=== PATIENT | male | born 1990 | race American Indian/Alaskan Native ===

== ENCOUNTER 2017-12-16 22:07 | Emergency (ER) | payer SELFPAY | END 2017-12-16 22:10 | disposition left against medical advice (07) | LOC: ED 22:07 | DX: K13.79 Other lesions of oral mucosa (principal); Z53.21 Procedure and treatment not carried out due to patient leaving prior to being seen by health care provider ==

== ENCOUNTER 2017-12-17 14:08 | Emergency (ER) | payer SELFPAY ==
[2017-12-17 14:32] VITALS: BP 125/80
[2017-12-17] MEDS ORDERED: MOTRIN PO ONE (15:15)
[2017-12-17] MEDS ORDERED: XYLOCAINE 1% 20 mL INFILTRATI ONE (15:15)
--- NOTE | 2017-12-17 15:25 | Emergency Department Report ---
ED ENT HPI - General Chief complaint: Dental/Oral Stated complaint: CYST IN MOUTH Time Seen by Provider: 12/17/17 14:59 Source: patient Mode of arrival: Ambulatory Limitations: No Limitations - History of Present Illness Initial comments: This is a 27-year-old female nontoxic, well nourished in appearance, no acute signs of distress presents to the ED with c/o of left upper toothache 3 days. Patient denies following up with a dentist. PAtient also stated fells a "bump" in the gum area but the toothache. Patient believes it is an abscess. Patient stated that pain radiates from his job to his left side of head. Patient otherwise denies any head trauma. Patient describes toothache as aching level of 8 out of 10. Patient denies any facial swelling. Patient denies any numbness, tingling, fever, chills, headache, stiff neck, abdominal pain, chest pain, shortness of breath. Patient denies any drug allergies or significant past medical history. MD complaint: tooth pain -: days(s) (3) Location: tooth # Severity: mild Severity scale (0 -10): 8 Quality: aching Consistency: constant Improves with: none Worsens with: none Associated Symptoms: gum swelling, toothache. denies: fever, cough, pain with swallowing, sore throat, tinnitus, hearing loss, discharge from ear, rhinorrhea - Related Data Previous Rx's Medication Instructions Recorded Last Taken Type Ondansetron [Zofran ODT TAB] 4 mg PO Q8HR #20 tab.rapdis 06/04/16 Unknown Rx Sulfamethoxazole/Trimethoprim 1 each PO BID #14 tablet 06/04/16 Unknown Rx [Bactrim DS TAB] Acetaminophen/Codeine [Tylenol 1 tab PO Q6H PRN #12 tab 12/17/17 Unknown Rx /Codeine # 3 tab] Clindamycin [Clindamycin CAP] 300 mg PO Q8H #21 cap 12/17/17 Unknown Rx Ibuprofen [Motrin] 600 mg PO Q8H PRN #30 tablet 12/17/17 Unknown Rx Allergies Allergy/AdvReac Type Severity Reaction Status Date / Time seafood Allergy Anaphylaxis Uncoded 03/03/15 01:44 ED Dental HPI - General Chief complaint: Dental/Oral Stated complaint: CYST IN MOUTH Time Seen by Provider: 12/17/17 14:59 Source: patient Mode of arrival: Ambulatory Limitations: No Limitations - Related Data Previous Rx's Medication Instructions Recorded Last Taken Type Ondansetron [Zofran ODT TAB] 4 mg PO Q8HR #20 tab.rapdis 06/04/16 Unknown Rx Sulfamethoxazole/Trimethoprim 1 each PO BID #14 tablet 06/04/16 Unknown Rx [Bactrim DS TAB] Acetaminophen/Codeine [Tylenol 1 tab PO Q6H PRN #12 tab 12/17/17 Unknown Rx /Codeine # 3 tab] Clindamycin [Clindamycin CAP] 300 mg PO Q8H #21 cap 12/17/17 Unknown Rx Ibuprofen [Motrin] 600 mg PO Q8H PRN #30 tablet 12/17/17 Unknown Rx Allergies Allergy/AdvReac Type Severity Reaction Status Date / Time seafood Allergy Anaphylaxis Uncoded 03/03/15 01:44 ED Review of Systems ROS: Stated complaint: CYST IN MOUTH Other details as noted in HPI Constitutional: denies: chills, fever Eyes: denies: eye pain, eye discharge, vision change ENT: dental pain. denies: ear pain, throat pain Respiratory: denies: cough, shortness of breath, wheezing Cardiovascular: denies: chest pain, palpitations Endocrine: no symptoms reported Gastrointestinal: denies: abdominal pain, nausea, diarrhea Genitourinary: denies: urgency, dysuria Musculoskeletal: denies: back pain, joint swelling, arthralgia Skin: denies: rash, lesions Neurological: denies: headache, weakness, paresthesias Psychiatric: denies: anxiety, depression Hematological/Lymphatic: denies: easy bleeding, easy bruising ED Past Medical Hx - Past Medical History Hx Asthma: Yes - Social History Smoking Status: Current Every Day Smoker Substance Use Type: Alcohol - Medications Home Medications: Home Medications Medication Instructions Recorded Confirmed Last Taken Type Ondansetron [Zofran ODT TAB] 4 mg PO Q8HR #20 tab.rapdis 06/04/16 Unknown Rx Sulfamethoxazole/Trimethoprim 1 each PO BID #14 tablet 06/04/16 Unknown Rx [Bactrim DS TAB] Acetaminophen/Codeine [Tylenol 1 tab PO Q6H PRN #12 tab 12/17/17 Unknown Rx /Codeine # 3 tab] Clindamycin [Clindamycin CAP] 300 mg PO Q8H #21 cap 12/17/17 Unknown Rx Ibuprofen [Motrin] 600 mg PO Q8H PRN #30 tablet 12/17/17 Unknown Rx ED Physical Exam - General Limitations: No Limitations General appearance: alert, in no apparent distress - Head Head exam: Present: atraumatic, normocephalic - Eye Eye exam: Present: normal appearance Pupils: Present: normal accommodation - ENT ENT exam: Present: mucous membranes moist - Expanded ENT Exam Expanded Ear exam: Present: normal external inspection Mouth exam: Present: normal external inspection, tongue normal. Absent: drooling, trismus, muffled voice, tongue elevation, laceration Teeth exam: Present: dental caries, fractured tooth #, dental tenderness #, gingival enlargement, other (no facial swelling.) 1 - Fractured, Dental Tenderness 2 - Other (abscess present) Throat exam: Positive: normal inspection. Negative: tonsillar erythema, tonsillomegaly, tonsillar exudate, R peritonsillar mass, L peritonsillar mass - Neck Neck exam: Present: normal inspection, full ROM. Absent: tenderness, meningismus, lymphadenopathy - Respiratory Respiratory exam: Present: normal lung sounds bilaterally. Absent: respiratory distress, wheezes, rales, rhonchi, stridor, chest wall tenderness, accessory muscle use, decreased breath sounds, prolonged expiratory - Cardiovascular Cardiovascular Exam: Present: regular rate, normal rhythm, normal heart sounds. Absent: bradycardia, tachycardia, irregular rhythm, systolic murmur, diastolic murmur, rubs, gallop - GI/Abdominal GI/Abdominal exam: Present: soft, normal bowel sounds - Rectal Rectal exam: Present: deferred - Extremities Exam Extremities exam: Present: normal inspection - Back Exam Back exam: Present: normal inspection - Neurological Exam Neurological exam: Present: alert, oriented X3 - Psychiatric Psychiatric exam: Present: normal affect, normal mood - Skin Skin exam: Present: warm, dry, intact, normal color. Absent: rash ED Course Vital Signs 12/17/17 14:30 Temperature 97 F L Pulse Rate 66 Respiratory 18 Rate Blood Pressure 125/80 O2 Sat by Pulse 99 Oximetry - Reevaluation(s) Reevaluation #1: 12/17/17 15:26 Patient is speaking in full sentences with no signs of distress noted. - I & D Left Face Type of Procedure: Simple Site: left gingival area by tooth #12 Blade Size: 11 I & D Procedure: betadine prep, sterile drapes applied, gauze wick placed Progress: Under sterile field, I used Betadine to cleanse the area. I then used 1% lidocaine plain with 25-gauge 5/8 needle to inject area for anesthetic purposes. Total volume injected 3 mL around the abscess area. I then used an 11 blade to make a 1 cm incision. About 2 mL's of purulent drainage has been noted. I then used a hemostat to break the abscess formation. I then used sterile 0.9% normal saline flush to flush the wound with total volume of 40 mL used. Bleeding is under control. Patient tolerated the procedure well with no signs of distress noted. ED Medical Decision Making - Medical Decision Making This is a 27-year-old male that presents with dental abscess, gingivitis, and dental caries. Patient is stable and was examined by me. Abscess has been drained and patient tolerated well with no signs of distress. I did give patient clindamycin 600 mg IM in the ED and patient is discharged with clindamycin. He had strict instructions to follow-up with oral maxillary surgeon in 24 hours or if symptoms would worsen to return to emergency room as was possible. Patient is discharged with Tylenol with codeine, Peridex and Clinda. Patient was instructed not to operate any machinery when taking Tylenol #3 due to drowsiness. At time of discharge, the patient does not seem toxic or ill in appearance. No acute signs of distress noted. Patient agrees to discharge treatment plan of care. No further questions noted by the patient. Critical care attestation.: If time is entered above; I have spent that time in minutes in the direct care of this critically ill patient, excluding procedure time. ED Disposition Clinical Impression: Abscess, Encounter for incision and drainage procedure, Dental caries, Gingivitis Disposition: - TO HOME OR SELFCARE Is pt being admited?: No Does the pt Need Aspirin: No Condition: Stable Instructions: Dental Caries (ED), Gingivitis (ED), Acetaminophen/Codeine (By mouth) Additional Instructions: Follow-up with a oral maxillary surgeon in 24 hours or if symptoms worsen and continue return to emergency room as soon as possible. Do not operate any machinery while taking Tylenol with codeine as this may cause drowsiness. 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 [facility] [employer] Address: [address], [place] [address] Hours: Monday Closed Monday 8AM1PM, 25PM Monday 8AM1PM, 25Monday 8AM1PM, 25 8AM1PM, 25Monday 7AM2PM Monday Closed Prescriptions: Acetaminophen/Codeine [Tylenol /Codeine # 3 tab] 1 tab PO Q6H PRN #12 tab PRN Reason: Pain , Severe (7-10) Clindamycin [Clindamycin CAP] 300 mg PO Q8H #21 cap Ibuprofen [Motrin] 600 mg PO Q8H PRN #30 tablet PRN Reason: Pain Referrals: PRIMARY CAREMD [Primary Care Provider] - 3-5 Days JORDAN WALKER MD [Staff Physician] - 3-5 Days [facility] [Outside] - 3-5 Days Forms: Work/School Release Form(ED)
[2017-12-17] MEDS ORDERED: CLEOCIN IM ONE (15:28)
== END 2017-12-17 16:02 | disposition home or self-care (01) ==
LOC: ED 14:08
DX: K12.2 Cellulitis and abscess of mouth (principal); K02.9 Dental caries, unspecified; K05.00 Acute gingivitis, plaque induced; J45.909 Unspecified asthma, uncomplicated; F17.200 Nicotine dependence, unspecified, uncomplicated; Z91.013 Allergy to seafood
CPT/HCPCS: 96372; 99282

== ENCOUNTER 2018-12-10 13:26 | Emergency (ER) | payer SELFPAY ==
[2018-12-10] MEDS ORDERED: DELTASONE PO ONE (13:45)
[2018-12-10] MEDS ORDERED: DUONEB *Not for PRN Use IH ONE (13:45)
--- NOTE | 2018-12-10 13:45 | Emergency Department Report ---
Blank Doc - Documentation Documentation: This is a 28-year-old male that presents with asthma exacerbation. This initial assessment/diagnostic orders/clinical plan/treatment(s) is/are subject to change based on patient's health status, clinical progression and re- assessment by fellow clinical providers in the ED. Further treatment and workup at subsequent clinical providers discretion. Patient/guardians urged not to elope from the ED as their condition may be serious if not clinically assessed and managed. Initial orders include: 1- Patient sent to [facility] for further evaluation and treatment 2- breathing treatment/steroids
--- NOTE | 2018-12-10 15:03 | Emergency Department Report ---
ED Asthma HPI - General Chief Complaint: Adult Asthma Stated Complaint: ASTHMA ATTACK Time Seen by Provider: 12/10/18 13:44 Source: patient Mode of arrival: Ambulatory Limitations: No Limitations - History of Present Illness Initial Comments: Patient is 28 years old male with history of asthma. Patient presented to the ER complaining of shortness of breath and wheezing and started this morning. also stated that he ran out of his nebulizer treatment. Patient denied any fever or chills. MD Complaint: shortness of breath, wheezing -: This morning Asthma History: childhood onset Severity: moderate Context: recent URI Associated Symptoms: none Treatments Prior to Arrival: inhaled bronchodilator - Related Data Current Asthma Therapy: none Previous Rx's Medication Instructions Recorded Last Taken Type Ondansetron [Zofran ODT TAB] 4 mg PO Q8HR #20 tab.rapdis 06/04/16 Unknown Rx Sulfamethoxazole/Trimethoprim 1 each PO BID #14 tablet 06/04/16 Unknown Rx [Bactrim DS TAB] Acetaminophen/Codeine [Tylenol 1 tab PO Q6H PRN #12 tab 12/17/17 Unknown Rx /Codeine # 3 tab] Clindamycin [Clindamycin CAP] 300 mg PO Q8H #21 cap 12/17/17 Unknown Rx Ibuprofen [Motrin] 600 mg PO Q8H PRN #30 tablet 12/17/17 Unknown Rx Allergies Allergy/AdvReac Type Severity Reaction Status Date / Time seafood Allergy Anaphylaxis Uncoded 03/03/15 01:44 ED Review of Systems ROS: Stated complaint: ASTHMA ATTACK Other details as noted in HPI Comment: All other systems reviewed and negative Constitutional: denies: chills, fever Respiratory: shortness of breath, wheezing. denies: cough, orthopnea, SOB with exertion, SOB at rest Cardiovascular: denies: chest pain, palpitations Gastrointestinal: denies: abdominal pain, nausea, vomiting Musculoskeletal: denies: back pain ED Past Medical Hx - Past Medical History Previous Medical History?: Yes Hx Asthma: Yes - Surgical History Past Surgical History?: No - Social History Smoking Status: Never Smoker Substance Use Type: Marijuana - Medications Home Medications: Home Medications Medication Instructions Recorded Confirmed Last Taken Type Ondansetron [Zofran ODT TAB] 4 mg PO Q8HR #20 tab.rapdis 06/04/16 Unknown Rx Sulfamethoxazole/Trimethoprim 1 each PO BID #14 tablet 06/04/16 Unknown Rx [Bactrim DS TAB] Acetaminophen/Codeine [Tylenol 1 tab PO Q6H PRN #12 tab 12/17/17 Unknown Rx /Codeine # 3 tab] Clindamycin [Clindamycin CAP] 300 mg PO Q8H #21 cap 12/17/17 Unknown Rx Ibuprofen [Motrin] 600 mg PO Q8H PRN #30 tablet 12/17/17 Unknown Rx ED Physical Exam - General Limitations: No Limitations General appearance: alert, in no apparent distress - Head Head exam: Present: atraumatic, normocephalic, normal inspection - Eye Eye exam: Present: normal appearance, PERRL - ENT ENT exam: Present: normal exam, normal orophraynx, mucous membranes moist - Neck Neck exam: Present: normal inspection, full ROM. Absent: tenderness, meningismus, lymphadenopathy, thyromegaly - Respiratory Respiratory exam: Present: wheezes. Absent: respiratory distress, rales, rhonchi, stridor, accessory muscle use, decreased breath sounds, prolonged expiratory - Cardiovascular Cardiovascular Exam: Present: regular rate, normal rhythm, normal heart sounds - GI/Abdominal GI/Abdominal exam: Present: soft - Extremities Exam Extremities exam: Present: normal inspection, full ROM, normal capillary refill. Absent: pedal edema, calf tenderness - Back Exam Back exam: Present: normal inspection, full ROM. Absent: CVA tenderness (R), CVA tenderness (L) - Neurological Exam Neurological exam: Present: alert, oriented X3, CN II-XII intact, normal gait, reflexes normal - Psychiatric Psychiatric exam: Present: normal mood - Skin Skin exam: Present: warm, intact, normal color ED Course Vital Signs 12/10/18 13:44 Temperature 98.2 F Pulse Rate 88 Respiratory 20 Rate Blood Pressure 120/70 O2 Sat by Pulse 96 Oximetry ED Medical Decision Making - Medical Decision Making Patient received albuterol and Atrovent and prednisone. Patient stated that he is feeling much better. Patient advised to follow-up with his primary care physician in the next 2-3 days and to return to the ER if symptoms are not improved. Critical care attestation.: If time is entered above; I have spent that time in minutes in the direct care of this critically ill patient, excluding procedure time. ED Disposition Clinical Impression: Asthma exacerbation Disposition: DC-01 TO HOME OR SELFCARE Is pt being admited?: No Condition: Stable Instructions: Asthma (ED) Referrals: PRIMARY CARE, [Primary Care Provider] - 3-5 Days [facility] [Provider Group] - 3-5 Days
[2018-12-10 15:12] VITALS: BP 121/71
== END 2018-12-10 15:11 | disposition home or self-care (01) ==
LOC: ED 13:26
DX: J45.21 Mild intermittent asthma with (acute) exacerbation (principal); Z91.013 Allergy to seafood; F12.10 Cannabis abuse, uncomplicated; Z79.899 Other long term (current) drug therapy
CPT/HCPCS: 99283; J7512

== ENCOUNTER 2019-04-04 16:49 | Emergency (ER) | payer SELFPAY ==
[2019-04-04 20:05] VITALS: BP 128/71
--- NOTE | 2019-04-04 20:34 | XRay Report ---
CHEST 2 VIEWS INDICATION: productive cough and chestpain. COMPARISON: None FINDINGS: Support devices: None. Heart: Within normal limits. Lungs/pleura: No acute air space or interstitial disease. No pneumothorax. Additional findings: None. IMPRESSION: 1. No acute findings. Signer Name: Hunter Martinez MD Signed: 04/04/2019 8:29 PM Workstation Name: [id number]
--- NOTE | 2019-04-04 21:48 | Emergency Department Report ---
- General Chief Complaint: Upper Respiratory Infection Stated Complaint: FLU SX Source: patient Mode of arrival: Ambulatory Limitations: No Limitations - History of Present Illness Initial Comments: Patient is a 28-year-old -Emir[place] male with no past medical history presents to the ED with complaint of acute onset persistent nasal and sinus congestion, frontal sinus pressure, dry cough, diffuse body aches and pains and subjective fever and chills for the last 1 week. Patient states that the last 2 days the symptoms are worsened. Patient denies dizziness, abdominal pain, nausea, vomiting, sore throat, chest pain, shortness of breath, diarrhea, dysuria, urinary frequency and urgency, change in vision or syncope. MD Complaint: fever, cough, rhinorrhea, nasal congestion, sinus pain, other (diffuse body aches and pains) -: Sudden, week(s) (1) Severity: moderate Severity scale (0 -10): 7 Quality: sharp, aching Consistency: constant Improves With: nothing Worsens With: nothing Associated Symptoms: fever, chills, myalgias, headache, rhinorrhea, nasal congestion, cough. denies: sore throat, stiff neck, chest pain, shortness of breath, abdominal pain, nausea, vomiting, diarrhea, dysuria, rash, right sweats, weight loss, epistaxis, hoarseness, ear pain, other Treatments Prior to Arrival: none - Related Data Previous Rx's Medication Instructions Recorded Last Taken Type Ondansetron [Zofran ODT TAB] 4 mg PO Q8HR #20 tab.rapdis 06/04/16 Unknown Rx Sulfamethoxazole/Trimethoprim 1 each PO BID #14 tablet 06/04/16 Unknown Rx [Bactrim DS TAB] Acetaminophen/Codeine [Tylenol 1 tab PO Q6H PRN #12 tab 12/17/17 Unknown Rx /Codeine # 3 tab] Clindamycin [Clindamycin CAP] 300 mg PO Q8H #21 cap 12/17/17 Unknown Rx Ibuprofen [Motrin] 600 mg PO Q8H PRN #30 tablet 12/17/17 Unknown Rx ALBUTEROL Inhaler (OR & NICU) 2 puff IH QID PRN #1 inhalation 12/10/18 Unknown Rx [ProAir HFA Inhaler] ALBUTEROL NEB's [Proventil 0.083% 2.5 mg IH TID PRN #30 nebu 12/10/18 Unknown Rx NEBS] Prednisone [predniSONE 10 mg 10 mg PO .TAPER #1 tab.ds.pk 12/10/18 Unknown Rx (6-Day Pack, 21 Tabs)] Benzonatate [Tessalon Perles] 100 mg PO Q8HR #30 capsule 04/04/19 Unknown Rx DOXYCYCLINE Hyclate [Vibramycin 100 mg PO Q12HR #20 capsule 04/04/19 Unknown Rx CAP] Ibuprofen [Motrin] 600 mg PO Q8H PRN #24 tablet 04/04/19 Unknown Rx methylPREDNISolone [Medrol 4MG 4 mg PO DAILY #21 tab.ds.pk 04/04/19 Unknown Rx DOSEPAK (21 tabs)] Allergies Allergy/AdvReac Type Severity Reaction Status Date / Time seafood Allergy Anaphylaxis Uncoded 03/03/15 01:44 ED Review of Systems ROS: Stated complaint: FLU SX Other details as noted in HPI Comment: All other systems reviewed and negative Constitutional: chills, fever, malaise Eyes: denies: eye pain, eye discharge, vision change ENT: congestion. denies: ear pain, throat pain Respiratory: cough. denies: orthopnea, shortness of breath, SOB with exertion, SOB at rest, wheezing Cardiovascular: denies: chest pain, palpitations, dyspnea on exertion, syncope, paroxysmal nocturnal dyspnea Endocrine: no symptoms reported Gastrointestinal: denies: abdominal pain, nausea, vomiting, diarrhea, hematochezia Genitourinary: denies: urgency, dysuria Musculoskeletal: arthralgia, myalgia. denies: back pain, joint swelling Skin: denies: rash, lesions Neurological: headache. denies: weakness, paresthesias Psychiatric: denies: anxiety, depression Hematological/Lymphatic: denies: easy bleeding, easy bruising ED Past Medical Hx - Past Medical History Previous Medical History?: Yes Hx Asthma: Yes - Social History Smoking Status: Never Smoker Substance Use Type: None - Medications Home Medications: Home Medications Medication Instructions Recorded Confirmed Last Taken Type Ondansetron [Zofran ODT TAB] 4 mg PO Q8HR #20 tab.rapdis 06/04/16 Unknown Rx Sulfamethoxazole/Trimethoprim 1 each PO BID #14 tablet 06/04/16 Unknown Rx [Bactrim DS TAB] Acetaminophen/Codeine [Tylenol 1 tab PO Q6H PRN #12 tab 12/17/17 Unknown Rx /Codeine # 3 tab] Clindamycin [Clindamycin CAP] 300 mg PO Q8H #21 cap 12/17/17 Unknown Rx Ibuprofen [Motrin] 600 mg PO Q8H PRN #30 tablet 12/17/17 Unknown Rx ALBUTEROL Inhaler (OR & NICU) 2 puff IH QID PRN #1 inhalation 12/10/18 Unknown Rx [ProAir HFA Inhaler] ALBUTEROL NEB's [Proventil 0.083% 2.5 mg IH TID PRN #30 nebu 12/10/18 Unknown Rx NEBS] Prednisone [predniSONE 10 mg 10 mg PO .TAPER #1 tab.ds.pk 12/10/18 Unknown Rx (6-Day Pack, 21 Tabs)] Benzonatate [Tessalon Perles] 100 mg PO Q8HR #30 capsule 04/04/19 Unknown Rx DOXYCYCLINE Hyclate [Vibramycin 100 mg PO Q12HR #20 capsule 04/04/19 Unknown Rx CAP] Ibuprofen [Motrin] 600 mg PO Q8H PRN #24 tablet 04/04/19 Unknown Rx methylPREDNISolone [Medrol 4MG 4 mg PO DAILY #21 tab.ds.pk 04/04/19 Unknown Rx DOSEPAK (21 tabs)] ED Physical Exam - General Limitations: No Limitations General appearance: alert, in no apparent distress - Head Head exam: Present: atraumatic, normocephalic, normal inspection - Eye Eye exam: Present: normal appearance, PERRL, EOMI Pupils: Present: normal accommodation - ENT ENT exam: Present: normal exam, normal orophraynx, mucous membranes moist, TM's normal bilaterally, normal external ear exam, other (grossly congested nasal passages, frontal and maxillary sinus tenderness) - Neck Neck exam: Present: normal inspection, full ROM. Absent: tenderness, lymphadenopathy - Respiratory Respiratory exam: Present: normal lung sounds bilaterally. Absent: respiratory distress, wheezes, rhonchi, chest wall tenderness, accessory muscle use, decreased breath sounds, prolonged expiratory - Cardiovascular Cardiovascular Exam: Present: regular rate, normal rhythm, normal heart sounds. Absent: systolic murmur, diastolic murmur, rubs, gallop - GI/Abdominal GI/Abdominal exam: Present: soft, normal bowel sounds. Absent: tenderness, guarding, rebound, hyperactive bowel sounds, hypoactive bowel sounds, organomegaly - Extremities Exam Extremities exam: Present: normal inspection, full ROM, normal capillary refill - Back Exam Back exam: Present: normal inspection, full ROM. Absent: tenderness, CVA tenderness (R), muscle spasm, paraspinal tenderness, vertebral tenderness - Neurological Exam Neurological exam: Present: alert, oriented X3, CN II-XII intact, normal gait, reflexes normal - Psychiatric Psychiatric exam: Present: normal affect, normal mood - Skin Skin exam: Present: warm, dry, intact, normal color. Absent: rash ED Course Vital Signs 04/04/19 20:02 Temperature 99.2 F Pulse Rate 96 H Respiratory 18 Rate Blood Pressure 128/71 O2 Sat by Pulse 96 Oximetry ED Medical Decision Making - Radiology Data Radiology results: report reviewed, image reviewed Findings [address] [address] XRay Report Signed Patient: SURYA CERVANTES MR#: [id number] : 1990 Acct:[id number] Age/Sex: 28 / M ADM Date: 04/04/19 Loc: ED Attending Dr: Ordering Physician: SALVATORE PRINGLE Date of Service: 04/04/19 Procedure(s): XR chest routine 2V Accession Number(s): [id number] cc: SALVATORE PRINGLE Fluoro Time In Minutes: CHEST 2 VIEWS INDICATION: productive cough and chestpain. COMPARISON: None FINDINGS: Support devices: None. Heart: Within normal limits. Lungs/pleura: No acute air space or interstitial disease. No pneumothorax. Additional findings: None. IMPRESSION: 1. No acute findings. Signer Name: Hunter Martinez MD Signed: 04/04/2019 8:29 PM Workstation Name: [id number] Transcribed By: JW Dictated By: Hunter Martinez MD Electronically Authenticated By: Hunter Martinez MD Signed Date/Time: 04/04/192028 DD/ 27 TD/TT: - Medical Decision Making This is a 28-year-old male who presented to the ED with complaint of nasal and sinus congestion, frontal sinus pressure and headache, subjective fever and chills, diffuse body aches and pains with dry cough for the last 1 week. In the ED, patient is alert and oriented 3 and is not in distress with normal vital signs. Chest x-ray shows no acute Pulmonary abnormalities or pneumonitis. Salvatore am was discharged home on medications for acute upper respiratory infection, suspect it's sinusitis and bronchitis. Patient was advised to follow-up with his primary care physician in 7-10 days for reevaluation or return to the ED immediately if symptoms get worse. - Differential Diagnosis sinusitis; URI; Bronchitis; Flu like Critical care attestation.: If time is entered above; I have spent that time in minutes in the direct care of this critically ill patient, excluding procedure time. ED Disposition Clinical Impression: Acute upper respiratory infection, Acute non-recurrent frontal sinusitis Acute bronchitis Qualifiers: Bronchitis organism: unspecified organism Qualified Code(s): J20.9 - Acute bronchitis, unspecified Disposition: DC-01 TO HOME OR SELFCARE Is pt being admited?: No Does the pt Need Aspirin: No Condition: Stable Instructions: Acute Bronchitis (ED), Acute Bacterial Rhinosinusitis (ED), Upper Respiratory Infection (ED) Additional Instructions: Take medication with food, drink plenty of fluids and follow-up with your primary care physician in 7-10 days for reevaluation. Return to the ED immediately if symptoms get worse. Prescriptions: methylPREDNISolone [Medrol 4MG DOSEPAK (21 tabs)] 4 mg PO DAILY #21 tab.ds.pk Ibuprofen [Motrin] 600 mg PO Q8H PRN #24 tablet PRN Reason: Pain Benzonatate [Tessalon Perles] 100 mg PO Q8HR #30 capsule DOXYCYCLINE Hyclate [Vibramycin CAP] 100 mg PO Q12HR #20 capsule Referrals: PRIMARY CARE,MD [Primary Care Provider] - 3-5 Days Forms: Work/School Release Form(ED) Time of Disposition: 21:51 Print Language: PORTUGUESE
== END 2019-04-04 22:30 | disposition home or self-care (01) ==
LOC: ED 16:49
DX: J20.9 Acute bronchitis, unspecified (principal); J01.10 Acute frontal sinusitis, unspecified; J45.909 Unspecified asthma, uncomplicated; Z79.899 Other long term (current) drug therapy; Z91.013 Allergy to seafood
CPT/HCPCS: 71046

== ENCOUNTER 2019-07-15 17:47 | Emergency (ER) | payer SELFPAY ==
[2019-07-15 18:01] VITALS: BP 132/61
--- NOTE | 2019-07-15 18:36 | XRay Report ---
CHEST PA AND LATERAL VIEWS INDICATION: sob,wheezing. COMPARISON: 04/04/2019 FINDINGS: Support devices: None. Heart: Within normal limits. Lungs/Pleura: No acute pulmonary or pleural findings. IMPRESSION: 1. No acute findings. Signer Name: Carlton Mendez MD Signed: 07/15/2019 6:32 PM Workstation Name: [id number]
--- NOTE | 2019-07-15 18:46 | Emergency Department Report ---
ED Asthma HPI - General Chief Complaint: Upper Respiratory Infection Stated Complaint: COLD SX Time Seen by Provider: 07/15/19 18:40 Source: patient Mode of arrival: Ambulatory Limitations: No Limitations - History of Present Illness Initial Comments: 28-year-old -Sammarinese male presents to the emergency room stating that he had a cold last week that lasted about 3 to 4 days and has resolved. Patient states that his job reports that he needs to have a note to return back to work. Patient states he was taking apple cider vinegar and NyQuil for his symptoms. Patient reports that his symptoms seem to present when change of the weather. Patient reports he has a history of asthma and has been out of his albuterol. Severity: mild Context: ran out of meds Associated Symptoms: none - Related Data Current Asthma Therapy: none Previous Rx's Medication Instructions Recorded Last Taken Type Ondansetron [Zofran ODT TAB] 4 mg PO Q8HR #20 tab.rapdis 06/04/16 Unknown Rx Sulfamethoxazole/Trimethoprim 1 each PO BID #14 tablet 06/04/16 Unknown Rx [Bactrim DS TAB] Acetaminophen/Codeine [Tylenol 1 tab PO Q6H PRN #12 tab 12/17/17 Unknown Rx /Codeine # 3 tab] Clindamycin [Clindamycin CAP] 300 mg PO Q8H #21 cap 12/17/17 Unknown Rx Ibuprofen [Motrin] 600 mg PO Q8H PRN #30 tablet 12/17/17 Unknown Rx ALBUTEROL NEB's [Proventil 0.083% 2.5 mg IH TID PRN #30 nebu 12/10/18 Unknown Rx NEBS] Prednisone [predniSONE 10 mg 10 mg PO .TAPER #1 tab.ds.pk 12/10/18 Unknown Rx (6-Day Pack, 21 Tabs)] Benzonatate [Tessalon Perles] 100 mg PO Q8HR #30 capsule 04/04/19 Unknown Rx DOXYCYCLINE Hyclate [Vibramycin 100 mg PO Q12HR #20 capsule 04/04/19 Unknown Rx CAP] Ibuprofen [Motrin] 600 mg PO Q8H PRN #24 tablet 04/04/19 Unknown Rx methylPREDNISolone [Medrol 4MG 4 mg PO DAILY #21 tab.ds.pk 04/04/19 Unknown Rx DOSEPAK (21 tabs)] Albuterol INH(or & Nicu Only) 2 puff IH QID PRN #1 inhalation 07/15/19 Unknown Rx [ProAir HFA Inhaler] Allergies Allergy/AdvReac Type Severity Reaction Status Date / Time seafood Allergy Anaphylaxis Uncoded 03/03/15 01:44 ED Review of Systems ROS: Stated complaint: COLD SX Other details as noted in HPI Comment: All other systems reviewed and negative ED Past Medical Hx - Past Medical History Hx Asthma: Yes - Social History Smoking Status: Never Smoker Substance Use Type: Alcohol, Marijuana - Medications Home Medications: Home Medications Medication Instructions Recorded Confirmed Last Taken Type Ondansetron [Zofran ODT TAB] 4 mg PO Q8HR #20 tab.rapdis 06/04/16 Unknown Rx Sulfamethoxazole/Trimethoprim 1 each PO BID #14 tablet 06/04/16 Unknown Rx [Bactrim DS TAB] Acetaminophen/Codeine [Tylenol 1 tab PO Q6H PRN #12 tab 12/17/17 Unknown Rx /Codeine # 3 tab] Clindamycin [Clindamycin CAP] 300 mg PO Q8H #21 cap 12/17/17 Unknown Rx Ibuprofen [Motrin] 600 mg PO Q8H PRN #30 tablet 12/17/17 Unknown Rx ALBUTEROL NEB's [Proventil 0.083% 2.5 mg IH TID PRN #30 nebu 12/10/18 Unknown Rx NEBS] Prednisone [predniSONE 10 mg 10 mg PO .TAPER #1 tab.ds.pk 12/10/18 Unknown Rx (6-Day Pack, 21 Tabs)] Benzonatate [Tessalon Perles] 100 mg PO Q8HR #30 capsule 04/04/19 Unknown Rx DOXYCYCLINE Hyclate [Vibramycin 100 mg PO Q12HR #20 capsule 04/04/19 Unknown Rx CAP] Ibuprofen [Motrin] 600 mg PO Q8H PRN #24 tablet 04/04/19 Unknown Rx methylPREDNISolone [Medrol 4MG 4 mg PO DAILY #21 tab.ds.pk 04/04/19 Unknown Rx DOSEPAK (21 tabs)] Albuterol INH(or & Nicu Only) 2 puff IH QID PRN #1 inhalation 07/15/19 Unknown Rx [ProAir HFA Inhaler] ED Physical Exam - General Limitations: No Limitations General appearance: alert, in no apparent distress - Head Head exam: Present: atraumatic, normocephalic - Eye Eye exam: Present: normal appearance - ENT ENT exam: Present: mucous membranes moist - Respiratory Respiratory exam: Present: normal lung sounds bilaterally. Absent: respiratory distress - Cardiovascular Cardiovascular Exam: Present: regular rate, normal rhythm. Absent: systolic murmur, diastolic murmur, rubs, gallop - Back Exam Back exam: Present: normal inspection - Neurological Exam Neurological exam: Present: alert, oriented X3, normal gait - Psychiatric Psychiatric exam: Present: normal affect, normal mood - Skin Skin exam: Present: warm, dry, intact, normal color. Absent: rash ED Course Vital Signs 07/15/19 17:51 Temperature 98.2 F Pulse Rate 60 Respiratory 20 Rate Blood Pressure 132/61 O2 Sat by Pulse 100 Oximetry ED Medical Decision Making - Radiology Data Radiology results: report reviewed Patient: SURYA CERVANTES MR#: [id number] : 1990 Acct:[id number] Age/Sex: 28 / M ADM Date: 07/15/19 Loc: ED Attending Dr: Ordering Physician: JAIDEN JEREZ MD Date of Service: 07/15/19 Procedure(s): XR chest routine 2V Accession Number(s): [id number] cc: ED MD SOLITARIO Fluoro Time In Minutes: CHEST PA AND LATERAL VIEWS INDICATION: sob,wheezing. COMPARISON: 04/04/2019 FINDINGS: Support devices: None. Heart: Within normal limits. Lungs/Pleura: No acute pulmonary or pleural findings. IMPRESSION: 1. No acute findings. Signer Name: Carlton Mendez MD Signed: 07/15/2019 6:32 PM Workstation Name: [id number] Transcribed By: DEBBIE Dictated By: Carlton Mendez MD Electronically Authenticated By: Carlton Mendez MD Signed Date/Time: 07/15/191831 DD/ 30 TD/TT: - Medical Decision Making 28-year-old -Sammarinese male presents to the emergency room stating that he had a cold last week that lasted about 3 to 4 days and has resolved. Patient states that his job reports that he needs to have a note to return back to work. Patient states he was taking apple cider vinegar and NyQuil for his symptoms. Patient reports that his symptoms seem to present when change of the weather. Patient reports he has a history of asthma and has been out of his albuterol. Critical care attestation.: If time is entered above; I have spent that time in minutes in the direct care of this critically ill patient, excluding procedure time. ED Disposition Clinical Impression: Asthma, Noncompliance with medications Disposition: TO HOME OR SELFCARE Is pt being admited?: No Does the pt Need Aspirin: No Condition: Stable Instructions: Asthma (ED) Additional Instructions: Chest x-ray is negative for any acute finding. Lung exam was normal no wheezing appreciated. Use albuterol inhaler as needed. Follow-up with your primary care provider I have listed a radio adjuster below for your convenience. Prescriptions: Albuterol INH(or & Nicu Only) [ProAir HFA Inhaler] 2 puff IH QID PRN #1 inhalation PRN Reason: Shortness Of Breath Referrals: DARREN MORENO MD [Staff Physician] - 3-5 Days Forms: Work/School Release Form(ED)
== END 2019-07-15 19:10 | disposition home or self-care (01) ==
LOC: ED 17:47
DX: J45.909 Unspecified asthma, uncomplicated (principal); F12.10 Cannabis abuse, uncomplicated; Z79.899 Other long term (current) drug therapy; Z91.013 Allergy to seafood
CPT/HCPCS: 71046; 99283

== ENCOUNTER 2019-12-12 18:20 | Emergency (ER) | payer SELFPAY ==
[2019-12-12 18:49] VITALS: BP 129/86
== END 2019-12-12 21:30 | disposition left against medical advice (07) ==
LOC: ED 18:20
DX: J45.909 Unspecified asthma, uncomplicated (principal); Z53.21 Procedure and treatment not carried out due to patient leaving prior to being seen by health care provider

== ENCOUNTER 2020-05-20 16:56 | Emergency (ER) | payer SELFPAY ==
[2020-05-20 18:11] VITALS: BP 123/66
--- NOTE | 2020-05-20 18:16 | Emergency Department Report ---
Chief Complaint: Medical Clearance Stated Complaint: COLD/DOC NOTE Time Seen by Provider: 05/20/20 18:14 - HPI History of Present Illness: Patient is a 29-year-old male presents emergency room with complaints of needing a return to work excuse. Patient states that he had cold-like symptoms for 3 days and his symptoms resolved yesterday. He states that his symptoms were cough, rhinorrhea, watery eyes. He denies any fever, nausea, vomiting, diarrhea, shortness of breath, chest pain, abdominal pain. He states that he presents emergency room for an excuse to return to work. He states that he was out at a nightclub a couple of days before his symptoms started. He does not know any known contacts with COVID-19. No recent travel. Past medical history of asthma. No allergies medications. Vitals are normal ROS: All other systems reviewed and are negative On exam: Non toxic appearing, no acute distress atraumatic, normocephalic normal appearance of the eyes, PERRL, EOMI, no periorbital edema or ecchymosis moist mucus membranes regular heart rate and rhythm, no gallops, no rubs, no murmurs breath sounds are clear bilaterally, no w/r/r, no respiratory distress, no accessory muscle use A&O x4, no focal neuro deficit skin is warm, dry, intact Patient is presenting for a return to work excuse after having cold-like symptoms for 3 days He began experiencing the symptoms after being out in a nightclub Patient's vitals are normal, his breath sounds are clear, no clinical signs of bacterial pneumonia or bacterial bronchitis, no signs of dehydration Symptoms likely related to viral URI Advised patient that the emergency department does not perform return to work exams and does not write work excuses, as this is a nonmedical emergency Discussed strict return precautions pt given the appropriate resources Medical screening examination performed and there is no threat to life or limb at this time - Exam Vital Signs: Vital Signs 05/20/20 18:10 Temperature 98.2 F Pulse Rate 62 Respiratory 18 Rate Blood Pressure 123/66 [Right] O2 Sat by Pulse 98 Oximetry MSE screening note: Focused history and physical exam performed. Due to findings the following was ordered: ED Disposition for MSE Clinical Impression: Encounter for medical screening examination Disposition: MED SCREENING EXAM-LEFT Is pt being admited?: No Does the pt Need Aspirin: No Condition: Stable Additional Instructions: please follow-up with your primary care doctor in order to have clearance to return to work. Return to emergency room for any new or worsening symptoms. walk in clinic: [facility] Address: [address] [place] [id number] Referrals: RAY STEEL MD [Staff Physician] - 3-5 Days [facility] [Provider Group] - 3-5 Days [facility], [LAB/CONTRACT] - 3-5 Days [facility] [Outside] - 3-5 Days Time of Disposition: 18:15 Print Language: ALGERIAN
== END 2020-05-20 19:00 | disposition left against medical advice (07) ==
LOC: ED 16:56
DX: J00 Acute nasopharyngitis [common cold] (principal); Z53.21 Procedure and treatment not carried out due to patient leaving prior to being seen by health care provider